=== PATIENT | male | born 1945 | race Caucasian/White ===

== ENCOUNTER 2021-10-17 10:00 | Emergency (ER) | payer MEDICARE ==
[~2021-10-17] VITALS: Ht 182.9 cm; Wt 100.0 kg
[~2021-10-17 10:00] MED LIST: EPIPEN0.3 MG IM
[2021-10-17] MEDS ORDERED: SG ASA LOW81 M1 PO (12:09)
[2021-10-17] MEDS ORDERED: SIMVASTATIN40 MG PO (12:10)
[2021-10-17] MEDS ORDERED: NORVASC5 M1 PO (12:10)
[2021-10-17] MEDS ORDERED: METOPROL TAR25 MG PO (12:19)
[2021-10-17 12:56] VITALS: BP 129/76
== END 2021-10-17 12:56 | disposition home or self-care (01) ==
LOC: ED 10:00
DX: M19.032 Primary osteoarthritis, left wrist (principal)